=== PATIENT | male | born 1950 | race Caucasian/White ===

== ENCOUNTER 2016-07-09 22:14 | Emergency (ER) | payer MEDICARE | END 2016-07-10 01:35 | disposition home or self-care (01) | LOC: D.ER 22:14 | DX: H81.20 Vestibular neuronitis, unspecified ear (principal); E78.5 Hyperlipidemia, unspecified ==

== ENCOUNTER → 2017-06-08 07:08 | Outpatient (CLI) | payer OTHER | END | disposition home or self-care (01) | LOC: D.NM 07:08 | DX: R10.11 Right upper quadrant pain (principal) ==

== ENCOUNTER → 2017-06-16 07:30 | Outpatient (CLI) | payer OTHER | END | disposition home or self-care (01) | LOC: D.CT 07:30 | DX: R10.11 Right upper quadrant pain (principal) ==

== ENCOUNTER → 2017-07-07 13:29 | Outpatient (CLI) | payer OTHER ==
[2017-07-07 18:58] LABS: ERYTHROCYTE SEDIMENTATION RATE 1 mm/hr (0-20)
== END | disposition home or self-care (01) ==
LOC: D.LABREF 13:29
PROVIDERS: Nurse Practitioner Acute Care
DX: Z86.010 Personal history of colon polyps (principal); R10.11 Right upper quadrant pain; R05 Cough

== ENCOUNTER → 2018-06-15 12:04 | Outpatient (CLI) | payer OTHER ==
--- NOTE | 2018-06-18 02:13 | EC ---
PATIENT:RAY SANTIAGO DATE OF SERVICE: 06/15/18 SEX: M MEDICAL RECORD: [id number] DATE OF : [birth year] LOCATION:D[facility] AGE OF PATIENT: 68 ADMISSION DATE: 06/15/18 REFERRING PHYSICIAN: INTERPRETING PHYSICIAN: LISSY LACY MD ECHOCARDIOGRAM REPORT ECHO CHARGES 4 ECHO COMPLETE Date: 06/15/18 CLINICAL DIAGNOSIS: HEART MURMUR ECHOCARDIOGRAPHIC MEASUREMENTS (adult normal given) AC root (d.<3.7cm) 3.5 cm LV Septum d (<1.2 cm> 1.5 cm Valve Excursion 1.3 cm LV Septum (systole) 1.6 cm Left Atria (s.<4.0cm> 3.4 cm LVPW d(<1.2cm) 1.4 cm RV (d.<2.3cm) 4.3 cm LVPW (sytole) 1.7 cm LV diastole(<5.6CM) 5.3 cm MV E-F(>70mm/sec) cm LV systole 3.5 cm LVOT Diameter 1.9 cm MV exc.(>10mm) 1.2 cm Est.ejection fraction (50-75%) % DOPPLER: LVIT cm/sec A 81.0 cm/sec E 68.0 cm/sec LA cm/sec RVSP 22 mmHg LVOT 97 cm/sec AOP1/2T m/s Asc. Ao 121 cm/sec RVOT 105 cm/sec RA cm/sec PA 103 cm/sec AV Gradient Peak 5.86 mmHg AV Mean 2.90 mmHg AV Area 2.4 cm MV Gradient Peak 3.84 mmHg MV Mean 1.68 mmHg MV Area cm COMMENTS: Reading Recovery Teacher: Jeffrey AMEZQUITA Fibreglass Lay Up Worker: 3 Dr. Lopez TAPE# PACS Pericardial Effusion N DATE OF SERVICE: 06/15/2018 Adequate 2-D, color-flow and spectral Doppler, and M-mode. LVH is present. LV internal dimensions are normal. Wall motion is normal. EF greater than 55%. Aortic valve is tricuspid. No evidence of stenosis by Doppler interrogation. Left atrium is normal at 3.4 cm. Mitral valve shows no prolapse. Trace MR. Right-sided chambers are grossly normal. Trace TR. TRANSINT:[id number] Voice Confirmation ID: [id number] DOCUMENT ID: [id number] ECHOCARDIOGRAM REPORT [id number] RAY SANTIAGO,LISSY Vasquez MD at 0213 CC: [id number] DICTATION DATE: 06/17/18 1341 MICROBIOLOGY LAB ANALYST: 06/17/18 1448 DEP CLI 06/15/18 [place] [id number] [place] [id number]
== END | disposition home or self-care (01) ==
LOC: D.HCCARDIO 12:04
PROVIDERS: ATTEND Internal Medicine Interventional Cardiology
DX: R01.1 Cardiac murmur, unspecified (principal)

== ENCOUNTER → 2019-05-31 09:27 | Outpatient (CLI) | payer OTHER ==
--- NOTE | 2019-06-04 08:31 | EC ---
PATIENT:RAY SANTIAGO DATE OF SERVICE: 05/31/19 SEX: M MEDICAL RECORD: [id number] DATE OF : [birth year] LOCATION:[facility] AGE OF PATIENT: 69 ADMISSION DATE: 05/31/19 REFERRING PHYSICIAN: INTERPRETING PHYSICIAN: LISSY LACY MD ECHOCARDIOGRAM REPORT ECHO CHARGES 4 ECHO COMPLETE Date: 05/31/19 CLINICAL DIAGNOSIS: HEART MURMUR HC OF TRACE MT/TR/HTN ECHOCARDIOGRAPHIC MEASUREMENTS (adult normal given) AC root (d.<3.7cm) 2.7 cm LV Septum d (<1.2 cm> 1.3 cm Valve Excursion 1.3 cm LV Septum (systole) 1.5 cm Left Atria (s.<4.0cm> 3.7 cm LVPW d(<1.2cm) 1.4 cm RV (d.<2.3cm) 4.2 cm LVPW (sytole) 1.5 cm LV diastole(<5.6CM) 4.0 cm MV E-F(>70mm/sec) cm LV systole 2.6 cm LVOT Diameter 1.9 cm MV exc.(>10mm) 1.3 cm Est.ejection fraction (50-75%) % DOPPLER: LVIT cm/sec A 91.0 cm/sec E 67.0 cm/sec LA cm/sec RVSP 21 mmHg LVOT 113 cm/sec AOP1/2T m/s Asc. Ao 131 cm/sec RVOT 82 cm/sec RA cm/sec PA 97 cm/sec AV Gradient Peak 6.83 mmHg AV Mean 4.23 mmHg AV Area 2.3 cm MV Gradient Peak 3.68 mmHg MV Mean 1.80 mmHg MV Area cm COMMENTS: Production Broacher: 2 ALISSA AMEZQUITA Training And Development Professional: 3 Dr. Lopez TAPE# PACS Pericardial Effusion N DATE OF SERVICE: Adequate 2D, color flow and spectral Doppler, and M-Mode. Mild LVH. LV internal dimension is normal. Wall motion is normal. EF is greater than or equal to 55%. Aortic valve is tricuspid. No evidence of stenosis by Doppler interrogation. Left atrium is normal. Mitral valve shows no prolapse. Trivial MR. Right-sided chambers are grossly normal. Trivial TR. TRANSINT:[id number] Voice Confirmation ID: [id number] DOCUMENT ID: [id number] ECHOCARDIOGRAM REPORT [id number] RAY SANTIAGO GREGORY A MD at 0831 CC: BOLIVAR MARTIN MD [id number] DICTATION DATE: 06/03/19 1310 CIGAR BINDER: 06/04/19 0009 DEP CLI 05/31/19 [place] [id number] [place] [id number]
== END | disposition home or self-care (01) ==
LOC: D.HCCECHO 09:27
PROVIDERS: ATTEND Internal Medicine Interventional Cardiology
DX: R01.1 Cardiac murmur, unspecified (principal)

== ENCOUNTER → 2020-06-09 07:53 | Outpatient (CLI) | payer MEDICARE ==
--- NOTE | 2020-06-10 16:12 | EC ---
PATIENT:RAY SANTIAGO DATE OF SERVICE: 06/09/20 SEX: M MEDICAL RECORD: [id number] DATE OF : [birth year] LOCATION:D[facility] AGE OF PATIENT: 70 ADMISSION DATE: 06/09/20 REFERRING PHYSICIAN: INTERPRETING PHYSICIAN: LISSY LACY MD ECHOCARDIOGRAM REPORT ECHO CHARGES 4 ECHO COMPLETE Date: 06/09/20 CLINICAL DIAGNOSIS: HEART MURMUR, ASSESS EF AND VALVES ECHOCARDIOGRAPHIC MEASUREMENTS (adult normal given) AC root (d.<3.7cm) 3.1 cm LV Septum d (<1.2 cm> 1.4 cm Valve Excursion 1.1 cm LV Septum (systole) 1.7 cm Left Atria (s.<4.0cm> 4.0 cm LVPW d(<1.2cm) 1.7 cm RV (d.<2.3cm) 4.5 cm LVPW (sytole) 1.8 cm LV diastole(<5.6CM) 4.7 cm MV E-F(>70mm/sec) cm LV systole 3.2 cm LVOT Diameter 2.2 cm MV exc.(>10mm) 1.3 cm Est.ejection fraction (50-75%) % DOPPLER: LVIT cm/sec A 95.0 cm/sec E 79.0 cm/sec LA cm/sec RVSP 31 mmHg LVOT 101 cm/sec AOP1/2T m/s Asc. Ao 133 cm/sec RVOT 84 cm/sec RA cm/sec PA 113 cm/sec AV Gradient Peak 7.10 mmHg AV Mean 3.70 mmHg AV Area 3.0 cm MV Gradient Peak 4.63 mmHg MV Mean 1.67 mmHg MV Area cm COMMENTS: Recordist: 2 ALISSA AMEZQUITA Director Trust: 3 Dr. Lopez TAPE# PACS Pericardial Effusion N DATE OF SERVICE: Adequate 2D, color flow imaging, spectral Doppler, and M-Mode. FINDINGS: Mild LVH. LV internal dimensions are normal. Wall motion is normal. EF is greater than or equal to 55%. Aortic valve is tricuspid. No evidence of stenosis by Doppler interrogation. Left atrium is normal at 4.0 cm. Mitral valve shows no prolapse. Trace MR. Right side is grossly normal. Mild TR. TRANSINT:[id number] Voice Confirmation ID: [id number] DOCUMENT ID: [id number] ECHOCARDIOGRAM REPORT [id number] RAY SANTIAGO,LISSY Vasquez MD at 1612 CC: [id number] DICTATION DATE: 06/09/20 1432 GRAIN DISTRIBUTOR: 06/09/20 1806 DEP CLI 06/09/20 [place] [id number] [place] [id number]
== END | disposition home or self-care (01) ==
LOC: D.HCCECHO 07:53
PROVIDERS: ATTEND Internal Medicine Interventional Cardiology
DX: R01.1 Cardiac murmur, unspecified (principal)